=== PATIENT | female | born 1955 ===

== ENCOUNTER 2018-08-09 11:24 | Emergency (ER) | payer OTHER ==
[2018-08-09 12:16] VITALS: RESP 18
[2018-08-09] MEDS ORDERED: Oxycodone/Acetaminophen 5/325 mg Tab PO STA (12:57)
--- NOTE | 2018-08-09 13:26 | RAD ---
Date of service: 08/09/2018 PROCEDURE: Radiographs of the right elbow. HISTORY: fall, R arm COMPARISON: No prior. FINDINGS: BONES: There is an acute comminuted displaced fracture in the radial head with volar angulation. Bone alignment is normal. There is mild periarticular bone demineralization. JOINTS: Normal. No osteoarthritis. SOFT TISSUES: There is mild periarticular soft tissue swelling and edema. JOINT EFFUSION: None. OTHER FINDINGS: None. IMPRESSION: Acute comminuted displaced fracture in the radial head with volar angulation. No dislocation.
[2018-08-09] MEDS ORDERED: Oxycodone/Acetaminophen 5/325 mg Tab ONE (13:48)
--- NOTE | 2018-08-09 14:33 | ED PDOC ---
Upper Extremity Pain/Injury Time Seen by Provider: 08/09/18 12:35 Chief Complaint (Nursing): Upper Extremity Problem/Injury Chief Complaint (Provider): Right elbow injury History Per: Patient, Country Manager (Voyce ) History/Exam Limitations: no limitations Onset/Duration Of Symptoms: Hrs Current Symptoms Are (Timing): Still Present Additional Complaint(s): 62 year old female, with a past medical history of hypothyroidism and hyperlipidemia, presents to the ED after accidentally falling down steps and injuring her right elbow. Patient reports the elbow was run over by a cart. Denies any other injury or head injury. PMD: none provided Past Medical History Reviewed: Historical Data, Nursing Documentation, Vital Signs Vital Signs: Last Vital Signs Temp 98.2 F 08/09/18 12:14 Pulse 81 08/09/18 12:14 Resp 18 08/09/18 12:14 BP 150/83 08/09/18 12:14 Pulse Ox 97 08/09/18 12:14 - Medical History PMH: Hyperlipidemia, Hypothyroidism - Surgical History Surgical History: No Surg Hx - Family History Family History: States: Unknown Family Hx - Home Medications Home Medications: Ambulatory Orders Medication Instructions Recorded Hydrocodone/Acetaminophen [Vicodin 1 each PO Q8 #10 tablet 08/09/18 Es 7.5-300 mg Tablet] Ibuprofen [Motrin Tab] 600 mg PO Q6 #30 tab 08/09/18 - Allergies Allergies/Adverse Reactions: Allergies Allergy/AdvReac Type Severity Reaction Status Date / Time No Known Allergies Allergy Verified 08/09/18 12:14 Review of Systems ROS Statement: Except As Marked, All Systems Reviewed And Found Negative Musculoskeletal: Positive for: Other (Right elbow injury) Physical Exam - Reviewed Nursing Documentation Reviewed: Yes Vital Signs Reviewed: Yes - Physical Exam Appears: Positive for: Well Head Exam: Positive for: ATRAUMATIC, NORMOCEPHALIC Skin: Positive for: Normal Color, Warm, Dry Eye Exam: Positive for: Normal appearance Neck: Positive for: Normal, Painless ROM Extremity: Positive for: Tenderness (right elbow), Swelling (right elbow), Other (Limited ROM of right elbow; distally neurovascularly intact) Neurological/Psych: Positive for: Awake, Alert - ECG O2 Sat by Pulse Oximetry: 97 (RA) Pulse Ox Interpretation: Normal Medical Decision Making Medical Decision Making: Initial Impression: 62 y/o female presenting with elbow fracture Initial Plan: --Motrin 600mg PO --Percocet 1 tab PO --Right elbow X-ray 14:38 Country Manager: [id number] Patient has a radial head fracture with displacement. Images reviewed by Dr. Braun who recommends urgent outpatient follow up tomorrow. Discussed all results with patient including urgent need for follow up tomorrow. Discussed narcotic safety and potential for addiction. Patient understands to only use Vicodin as absolutely necessary. Patient is stable for discharge. Scribe Attestation: Documented by Raghav Jimenez acting as a scribe for Forrest Cary MD. Provider Scribe Attestation: All medical record entries made by the Scribe were at my direction and personally dictated by me. I have reviewed the chart and agree that the record accurately reflects my personal performance of the history, physical exam, medical decision making, and the department course for this patient. I have also personally directed, reviewed, and agree with the discharge instructions and disposition. Disposition - Clinical Impression Clinical Impression: Elbow fracture - Disposition Referrals: Gray Braun III, MD [Staff Provider] - Disposition: Routine/Home Disposition Time: 14:38 Condition: GOOD Prescriptions: Hydrocodone/Acetaminophen [Vicodin Es 7.5-300 mg Tablet] 1 each PO Q8 #10 tablet Ibuprofen [Motrin Tab] 600 mg PO Q6 #30 tab Instructions: Elbow Fracture (DC), Opioids for Short-Term Treatment of Pain, Taking Narcotics Safely Forms: [employer] (Estonian) Print Language: [place]
[2018-08-09 15:03] VITALS: BP 138/66; PULSE 82; TEMP 98.6
[2018-08-09 16:26] VITALS: O2SAT 97
== END 2018-08-09 15:01 | disposition home or self-care (01) ==
LOC: H.ER 11:24
DX: S52.501A Unspecified fracture of the lower end of right radius, initial encounter for closed fracture (principal); W10.9XXA Fall (on) (from) unspecified stairs and steps, initial encounter; Y92.89 Other specified places as the place of occurrence of the external cause; E03.9 Hypothyroidism, unspecified; E78.5 Hyperlipidemia, unspecified